=== PATIENT | female | born 1955 | race Caucasian/White ===

== ENCOUNTER 2021-07-28 05:06 | Inpatient (IN) | payer MEDICARE, MEDICAID ==
[~2021-07-28] VITALS: Ht 162.6 cm; Wt 68.9 kg
[2021-07-28] MEDS ORDERED: SODIUM CHLORIDE FLUSH 10ML SYR IVF ONE (05:30)
[2021-07-28] MEDS ORDERED: PLEASE ENTER ALLERGIES MC SCH (05:30)
--- NOTE | 2021-07-28 05:30 | NUR ---
PATIENT PLACED ON BIPAP BY RT;. PATIENT TOLERATING BIPAP WELL
[2021-07-28 06:00] LABS: BASOPHILS % (AUTO) 1 % (0-1); EOSINOPHILS % (AUTO) 1 % (1-7); LYMPHOCYTES % (AUTO) 20 % (22-44); MONOCYTES % (AUTO) 3 % (2-9); NEUTROPHILS % (AUTO) 75 % (42-75); PLATELET COUNT 428 x10^3/uL (130-400); RED BLOOD COUNT 4.05 x10^6/uL (3.82-5.3); RED CELL DISTRIBUTION WIDTH 14.4 % (9.6-15.2)
[2021-07-28 06:11] LABS: ALBUMIN 2.6 g/dL (3.4-5.0); ANION GAP 11 mmol/L (5-15); CALCIUM 8.4 mg/dL (8.5-10.1); CHLORIDE 110 mmol/L (98-107)
[2021-07-28 06:19] LABS: ALANINE AMINOTRANSFERASE 77 U/L (12-78); ALKALINE PHOSPHATASE 169 U/L (45-117); BILIRUBIN,TOTAL 0.3 mg/dL (0.2-1.0); CREATININE 1.08 mg/dL (0.55-1.02); TOTAL PROTEIN 6.9 g/dL (6.4-8.2)
[2021-07-28 06:21] LABS: TROPONIN I 0.137 ng/mL (0.000-0.045)
[2021-07-28] MEDS ORDERED: methylPREDNISolone SOD SUCC 125 MG/2 ML ONE ×3 (06:40→21:42)
--- NOTE | 2021-07-28 06:59 | NUR ---
BEDSIDE REPORT FROM STEPHANIE FIGUEROA.
[2021-07-28] MEDS ORDERED: methylPREDNISolone SOD SUCC 125 MG/2 ML IV ONE (07:00)
--- NOTE | 2021-07-28 07:40 | NUR ---
PT OFF BIPAP BY RT, NOW ON NC.
[2021-07-28] MEDS ORDERED: CEFTRIAXONE 1,000 MG in DEXTROSE 5% 50 ML IVPB ONE ×2 (08:00→13:00)
[2021-07-28] MEDS ORDERED: AZITHROMYCIN 500 MG in SODIUM CHLORIDE 0.9% 250 ML IVPB ONE (08:00)
[2021-07-28] MEDS ORDERED: ONDANSETRON 2MG/ML, 2ML IVPush ONE (08:00)
[2021-07-28] MEDS ORDERED: SODIUM CHLORIDE FLUSH 10ML SYR IVF PRN (08:00)
[2021-07-28] MEDS ORDERED: MORPHINE SULFATE 4 MG/ML, 1ML IVPush PRN (08:00)
--- NOTE | 2021-07-28 09:39 | NUR ---
ASSISTED PT TO BEDPAN.
--- NOTE | 2021-07-28 10:10 | NUR ---
Santino alas primary contact [phone]
--- NOTE | 2021-07-28 10:26 | NUR ---
PER PT OKAY TO TALK TO WILL HAGAN ABOUT HER POC.
--- NOTE | 2021-07-28 11:10 | NUR ---
HOSPITALIST AT BEDSIDE.
[2021-07-28] MEDS ORDERED: ENOXAPARIN 40 MG/0.4 ML SQ SCH (12:00)
[2021-07-28] MEDS: INSULIN LISPRO 100 UNITS/ML, PEN SQ-INSULIN SCH ×3 (12:00→21:00)
[2021-07-28 12:38] LABS: TROPONIN I 0.147 ng/mL (0.000-0.045)
[2021-07-28] MEDS ORDERED: DOCUSATE 100 MG CAPSULE PO PRN (13:00)
[2021-07-28] MEDS ORDERED: POLYETHYLENE GLYCOL 17 GM PACKET PO PRN (13:00)
[2021-07-28] MEDS ORDERED: BISACODYL 10 MG SUPP PR PRN (13:00)
[2021-07-28] MEDS ORDERED: ONDANSETRON ODT 4 MG PO PRN (13:00)
[2021-07-28] MEDS ORDERED: GUAIFENESIN/COD200MG-20MG/10ML LIQUID PO PRN (13:00)
[2021-07-28] MEDS ORDERED: MELATONIN 5 MG TABLET PO PRN (13:00)
[2021-07-28] MEDS ORDERED: ONDANSETRON 2MG/ML, 2ML IVPush PRN (13:00)
[2021-07-28] MEDS ORDERED: HYDROcodone/APAP 5/325 TABLET PO PRN (13:00)
[2021-07-28] MEDS ORDERED: hydrALAzine 20 MG/ML, 1ML IVPush PRN (13:00)
[2021-07-28] MEDS ORDERED: LORazepam 0.5MG TABLET ONE (13:03)
[2021-07-28] MEDS ORDERED: ONDANSETRON 2MG/ML, 2ML ONE (13:04)
[2021-07-28] MEDS: methylPREDNISolone SOD SUCC 125 MG/2 ML IVPush SCH ×2 (13:09→21:51)
[2021-07-28] MEDS: CEFTRIAXONE 2 GM in DEXTROSE 5% 50 ML IVPB SCH (13:10)
[2021-07-28] MEDS: LORazepam 1MG TABLET PO PRN (13:10)
--- NOTE | 2021-07-28 13:15 | NUR ---
REPORT TO JESUS FIGUEROA.
[2021-07-28] MEDS ORDERED: NICOTINE 14MG/24 HR PATCH.TD24 ONE (13:33)
[2021-07-28] MEDS ORDERED: PANTOPRAZOLE 40MG TABLET ONE ×2 (13:34→21:42)
[2021-07-28] MEDS: PANTOPRAZOLE 40MG TABLET PO SCH ×2 (13:39→21:51)
[2021-07-28] MEDS: NICOTINE 14MG/24 HR PATCH.TD24 TD SCH (13:39)
--- NOTE | 2021-07-28 13:46 | NUR ---
PT GIVEN MEAL TRAY
[2021-07-28 14:08] LABS: MICROSCOPIC INDICATED
[2021-07-28] MEDS ORDERED: ALBUTEROL HFA 90 MCG/SPRAY INH PRN (16:00)
--- NOTE | 2021-07-28 18:14 | NUR ---
PT TRANFERED TO [facility]
[2021-07-28 18:17] LABS: TROPONIN I 0.132 ng/mL (0.000-0.045)
--- NOTE | 2021-07-28 18:54 | NUR ---
RECEIVED REPORT FROM JESUS FIGUEROA. TRANSFER OF CARE.
--- NOTE | 2021-07-28 19:24 | NUR ---
rPatient is resting comfortably in bed. Bed in lowest, rails engaged, call light on lap. Vital Signs within normal limits. WCTM. nadn, pt states feeling way better and now she can breathe a&0x4
--- NOTE | 2021-07-28 19:25 | NUR ---
pt states no med rec
[2021-07-28] MEDS ORDERED: OMNIPAQUE 350 MG/ML, 100ML BOTTLE ONE (20:00)
--- NOTE | 2021-07-28 20:15 | NUR ---
PT OFF UNIT IN IMAGING.
--- NOTE | 2021-07-28 21:31 | NUR ---
Patient is sleeping comfortably in bed. eyes closed. Bed in lowest, rails engaged, call light on lap. [place]. RON. gabe
[2021-07-28] MEDS ORDERED: DOXYCYCLINE 100MG TABLET ONE (21:42)
--- NOTE | 2021-07-28 21:50 | NUR ---
pt states she is not diabetic
[2021-07-28] MEDS: DOXYCYCLINE 100MG TABLET PO SCH (21:51)
--- NOTE | 2021-07-28 22:21 | NUR ---
PT GIVEN ICE WATER AND TURKEY AND CHEESE SANDWICH WITH CONDIMENTS PT STATING SHE WAS VERY HAPPY AND THANKFUL. VSS. R[place]
--- NOTE | 2021-07-28 23:03 | NUR ---
PT BLOOD SUGAR EARLIER WAS 136
--- NOTE | 2021-07-29 00:05 | NUR ---
Patient is sleeping comfortably in bed. eyes closed. Bed in lowest, rails engaged, call light on lap. [place]. RON. gabe
--- NOTE | 2021-07-29 00:44 | NUR ---
NOTIFIED [facility] ABOUT PT CTA FINDINGS
[2021-07-29] MEDS ORDERED: Enoxaparin 1 mg/kg protocol SQ SCH (01:00)
[2021-07-29] MEDS ORDERED: ENOXAPARIN 100 MG/ML ONE (01:22)
--- NOTE | 2021-07-29 01:25 | NUR ---
weighed pt on standing scale. 62.1 kg. pty given 62mg lovenox
[2021-07-29] MEDS: ENOXAPARIN 60 MG/0.6 ML SQ SCH ×2 (01:30→13:38)
[2021-07-29] MEDS ORDERED: methylPREDNISolone SOD SUCC 125 MG/2 ML ONE (03:51)
[2021-07-29] MEDS: methylPREDNISolone SOD SUCC 125 MG/2 ML IVPush SCH ×3 (03:59→17:22)
--- NOTE | 2021-07-29 04:02 | NUR ---
pt ambulated to bathroom and back to bed with steady gait. breathing even and unlabored, reatached to monitors. hr elevated. nadn. wctm.
[2021-07-29 05:10] LABS: BASOPHILS % (AUTO) 0 % (0-1); EOSINOPHILS % (AUTO) 0 % (1-7); LYMPHOCYTES % (AUTO) 10 % (22-44); MEAN CORPUSCULAR HEMOGLOBIN 31.7 pg (27.0-34.8); MEAN CORPUSCULAR HGB CONC 33.9 g/dL (32.4-35.8); MEAN PLATELET VOLUME 7.9 fL (7.4-10.4); MONOCYTES % (AUTO) 2 % (2-9); NEUTROPHILS % (AUTO) 87 % (42-75); PLATELET COUNT 339 x10^3/uL (130-400); RED BLOOD COUNT 4.16 x10^6/uL (3.82-5.3); RED CELL DISTRIBUTION WIDTH 14.5 % (9.6-15.2)
[2021-07-29 05:24] LABS: ALANINE AMINOTRANSFERASE 71 U/L (12-78); ALBUMIN 2.8 g/dL (3.4-5.0); ANION GAP 7 mmol/L (5-15); CALCIUM 8.8 mg/dL (8.5-10.1); CHLORIDE 113 mmol/L (98-107); CREATININE 0.82 mg/dL (0.55-1.02)
[2021-07-29 05:27] LABS: ALKALINE PHOSPHATASE 142 U/L (45-117); BILIRUBIN,TOTAL 0.5 mg/dL (0.2-1.0); TOTAL PROTEIN 6.8 g/dL (6.4-8.2)
--- NOTE | 2021-07-29 05:49 | NUR ---
Patient is resting comfortably in bed. Bed in lowest, rails engaged, call light on lap. Vital Signs within normal limits. WCTM.
--- NOTE | 2021-07-29 06:52 | NUR ---
GAVE REPORT TO IVAN FIGUEROA. TRANSFER OF CARE.
[2021-07-29] MEDS: INSULIN LISPRO 100 UNITS/ML, PEN SQ-INSULIN SCH ×4 (07:00→23:04)
[2021-07-29] MEDS ORDERED: DOXYCYCLINE 100MG TABLET ONE (07:59)
[2021-07-29] MEDS ORDERED: PANTOPRAZOLE 40 MG IV ONE (07:59)
[2021-07-29] MEDS ORDERED: LORazepam 0.5MG TABLET ONE (08:01)
--- NOTE | 2021-07-29 08:02 | NUR ---
Pt resting in bed. pt states mildly anxious, no other complaints.
[2021-07-29] MEDS: DOXYCYCLINE 100MG TABLET PO SCH ×2 (08:03→21:33)
[2021-07-29] MEDS ORDERED: PANTOPRAZOLE 40MG TABLET ONE (08:07)
[2021-07-29] MEDS ORDERED: ACETAMINOPHEN 325 MG TABLET ONE (08:08)
[2021-07-29] MEDS: PANTOPRAZOLE 40MG TABLET PO SCH ×2 (08:09→21:33)
[2021-07-29] MEDS: ACETAMINOPHEN 325 MG TABLET PO PRN ×2 (08:09→21:33)
[2021-07-29] MEDS: FLUTICASONE/VILANTEROL 200-25MCG/INH INH SCH (09:00)
--- NOTE | 2021-07-29 10:32 | NUR ---
Covering primary for break: Monitor ST rate 140-48 no ectopy no chest pain, no sob pt says drank coffee, repeat EKG being done; will notifiy hospitalist.
--- NOTE | 2021-07-29 11:03 | NUR ---
report called to Aimee FIGUEROA
[2021-07-29] MEDS: CEFTRIAXONE 2 GM in DEXTROSE 5% 50 ML IVPB SCH (12:00)
[2021-07-29 12:59] VITALS: BP 120/76
[2021-07-29] MEDS ORDERED: SODIUM CHLORIDE 0.9%, 500ML IVBOLUS ONE (13:30)
[2021-07-29] MEDS: NICOTINE 14MG/24 HR PATCH.TD24 TD SCH (13:37)
[2021-07-29] MEDS ORDERED: DILTIAZEM 125 MG in SODIUM CHLORIDE 0.9% 100 ML IV SCH (14:30)
[2021-07-29] MEDS ORDERED: DILTIAZEM 5 MG/ML, 5ML IV ONE (15:00)
[2021-07-29 15:37] LABS: FREE T4 (FREE THYROXINE) 1.21 ng/dL (0.76-1.46)
[2021-07-29] MEDS ORDERED: DILTIAZEM 5 MG/ML, 5ML IVPush STA (16:27)
[2021-07-29] MEDS: METOPROLOL 1 MG/ML, 5ML IVPush SCH ×3 (17:31→18:00)
[2021-07-29 17:32] VITALS: BP 112/77
[2021-07-29 18:11] VITALS: BP 95/63
[2021-07-29] MEDS ORDERED: SODIUM CHLORIDE 0.9% 1,000ML IVBOLUS ONE (19:00)
[2021-07-29 20:42] VITALS: BP 92/53
[2021-07-29] MEDS: LORazepam 1MG TABLET PO PRN (21:33)
[2021-07-29] MEDS: METOPROLOL TARTRATE 25 MG TAB PO SCH (21:33)
[2021-07-29 22:52] VITALS: BP 108/69
[2021-07-30] MEDS: methylPREDNISolone SOD SUCC 125 MG/2 ML IVPush SCH (01:36)
[2021-07-30] MEDS: ENOXAPARIN 60 MG/0.6 ML SQ SCH ×2 (01:37→13:41)
[2021-07-30 01:57] VITALS: BP 117/78
[2021-07-30] MEDS ORDERED: DIPHENHYDRAMINE 50 MG/ML, 1ML IVPush ONE (02:00)
[2021-07-30] MEDS: METOPROLOL TARTRATE 25 MG TAB PO SCH (03:07)
[2021-07-30] MEDS: ACETAMINOPHEN 325 MG TABLET PO PRN (04:21)
[2021-07-30 06:41] LABS: MEAN CORPUSCULAR HEMOGLOBIN 31.2 pg (27.0-34.8); MEAN PLATELET VOLUME 7.9 fL (7.4-10.4); PLATELET COUNT 419 x10^3/uL (130-400); RED CELL DISTRIBUTION WIDTH 15.2 % (9.6-15.2)
[2021-07-30 06:44] LABS: ANION GAP 6 mmol/L (5-15); CALCIUM 8.1 mg/dL (8.5-10.1); CHLORIDE 113 mmol/L (98-107)
[2021-07-30 06:45] LABS: CREATININE 0.95 mg/dL (0.55-1.02)
[2021-07-30] MEDS: INSULIN LISPRO 100 UNITS/ML, PEN SQ-INSULIN SCH ×3 (07:00→16:00)
[2021-07-30 07:28] LABS: LYMPH#(MANUAL) 1.58 x10^3/uL (1-3.4); LYMPHS% (MANUAL) 7 % (22-44); MONOS#(MANUAL) 0.68 x10^3/uL (0.3-2.7); MONOS% (MANUAL) 3 % (2-9); SEG#(MANUAL) 20.25 x10^3/uL (1.8-6.8); SEGS% (MANUAL) 90 % (42-75)
[2021-07-30 07:29] LABS: <PLATELET ESTIMATE> INCREASED; <PLT MORPHOLOGY> NORMAL PLT MORPH; <RBC MORPHOLOGY> NORMAL
[2021-07-30 08:19] VITALS: BP 92/56
[2021-07-30] MEDS ORDERED: HALOPERIDOL 5 MG/ML IM PRN (08:30)
[2021-07-30] MEDS: FLUTICASONE/VILANTEROL 200-25MCG/INH INH SCH (09:00)
[2021-07-30 09:26] LABS: FREE T4 (FREE THYROXINE) 1.12 ng/dL (0.76-1.46)
[2021-07-30] MEDS: NICOTINE 14MG/24 HR PATCH.TD24 TD SCH (11:25)
[2021-07-30] MEDS: PANTOPRAZOLE 40MG TABLET PO SCH (11:25)
[2021-07-30] MEDS: DOXYCYCLINE 100MG TABLET PO SCH (11:26)
[2021-07-30] MEDS: METOPROLOL TARTRATE 50 MG TAB PO SCH ×3 (11:30→13:59)
[2021-07-30] MEDS: CEFTRIAXONE 2 GM in DEXTROSE 5% 50 ML IVPB SCH (13:41)
[2021-07-30 13:50] VITALS: BP 99/62
[2021-07-30 13:58] VITALS: BP 99/73
[2021-07-30] MEDS ORDERED: DILTIAZEM 125 MG in SODIUM CHLORIDE 0.9% 100 ML IV SCH (14:30)
[2021-07-30 18:30] VITALS: BP 119/75
== END 2021-07-30 18:55 | disposition left against medical advice (07) | DRG 175 ==
LOC: ED 09:42 → EDIP 09:49 → 4EST 07-29 11:58
PROVIDERS: ADMIT Family Medicine; ATTEND Family Medicine
PROC: 5A09357 Assistance with Respiratory Ventilation, Less than 24 Consecutive Hours, Continuous Positive Airway Pressure (ICD-10-PCS; principal; 2021-07-28)
DX: I26.99 Other pulmonary embolism without acute cor pulmonale (principal); J96.01 Acute respiratory failure with hypoxia; J12.9 Viral pneumonia, unspecified; I48.92 Unspecified atrial flutter; J90 Pleural effusion, not elsewhere classified; Z53.29 Procedure and treatment not carried out because of patient's decision for other reasons; F15.90 Other stimulant use, unspecified, uncomplicated; F43.10 Post-traumatic stress disorder, unspecified; E03.9 Hypothyroidism, unspecified; I48.91 Unspecified atrial fibrillation; Z20.822 Contact with and (suspected) exposure to COVID-19; J43.9 Emphysema, unspecified; Z80.1 Family history of malignant neoplasm of trachea, bronchus and lung; Z80.3 Family history of malignant neoplasm of breast; Z87.891 Personal history of nicotine dependence; Z90.49 Acquired absence of other specified parts of digestive tract; Z88.5 Allergy status to narcotic agent
CPT/HCPCS: 36415; 36600; 71045; 71275; 80048; 80053; 81001; 82803; 82962; 83036; 83605; 83735; 83880; 84100; 84145; 84439; 84443; 84481; 84484; 85025; 85379; 87040; 87086; 93005; 93308; 93321; 93325; 94660; 96374; 96375; G0378; J0456; J0696; J1650; J2405; Q9967; U0005; J1200; J1815; J2930; J7030; J7040; J7050; J7512; Q0177; U0003